=== PATIENT | male | born 1990 | race Caucasian/White ===

== ENCOUNTER 2016-11-17 09:48 | Day surgery (SDC) | payer BC ==
[2016-11-14 15:33] VITALS: BMI 16.0
[~2016-11-17] VITALS: Ht 182.9 cm; Wt 57.8 kg
[2016-11-17] VITALS (14 sets, daily range): BP systolic 99–122; BP diastolic 56–75; PULSE 60–87; RESP 16–38; Ht 182.9 cm; Wt 57.8 kg
[~2016-11-17 09:48] MED LIST: CEFAZOLIN 2 GM/50 ML (PMX) 50 ML IVPB SCH; SOD CHLORIDE 0.9% 1,000 ML IV SCH
[2016-11-17] MEDS ORDERED: LIDOCAINE 2% (SDV) 5 ML INJ ONE (11:21)
[2016-11-17] MEDS ORDERED: PROPOFOL 20 ML ONE (11:21)
[2016-11-17] MEDS ORDERED: MEPERIDINE 100 MG INJ ONE (11:23)
[2016-11-17] MEDS ORDERED: CEFAZOLIN 1 GM INJ ONE (11:23)
[2016-11-17] MEDS ORDERED: BUPIVACAINE 0.25% (MPF) 30 ML INJ INJ ONE (11:56)
[2016-11-17] MEDS ORDERED: HYDROmorphONE (0.2 MG/ML) 10ML SYG IV PRN ×2 (12:00)
[2016-11-17] MEDS ORDERED: MIDAZOLAM 1 MG/ML 2 ML INJ IV PRN (12:00)
[2016-11-17] MEDS ORDERED: MEPERIDINE 25 MG INJ IV PRN (12:00)
[2016-11-17] MEDS ORDERED: METOCLOPRAMIDE 10 MG INJ IV PRN (12:00)
[2016-11-17] MEDS ORDERED: ONDANSETRON 4 MG INJ IV PRN (12:00)
[2016-11-17] MEDS ORDERED: DIPHENHYDRAMINE 50 MG INJ IV PRN (12:00)
[2016-11-17] MEDS ORDERED: FENTAnyl 50 MCG/ML VIAL IV PRN ×2 (12:00)
[2016-11-17] MEDS ORDERED: HYDROCODONE/APAP (5/325) TAB PO ONE (12:30)
--- NOTE | 2016-11-17 15:15 | OPR ---
DATE OF OPERATION: 11/17/2016 INDICATION: This is a 26-year-old male with a large left gluteal mass. She requests surgical excision. Risks, alternatives, benefits, and personnel were discussed with the patient. The patient expressed understanding and consents to the operation. PREOPERATIVE DIAGNOSIS: Left gluteal mass. POSTOPERATIVE DIAGNOSIS: Left gluteal mass. OPERATIONS: 1. Excision of left gluteal mass 7 cm incision and 7 x 3 cm size mass. 2. Localized adjacent tissue transfer with the use of skin flaps. SURGEON: Sage Mitchell MD SPECIMEN: Left gluteal mass. COMPLICATIONS: None. ANESTHESIA: General. DESCRIPTION OF PROCEDURE: The patient was taken to the OR and prepped and draped in the usual sterile fashion. Surgical timeout was performed. IV antibiotics were given. A left elliptical incision was made over the left gluteal mass with a 10 blade. Dissection cautery was carried down to the mass and circumferentially excised. There was good hemostasis. Due to the large tissue defect, localized adjacent tissue transfer with the use of skin flaps was performed. Multilevel closure with interrupted 3-0 Vicryl and skin jenny. Local anesthesia was injected. Dry dressings were applied. Dictated By: SAGE ALLISON/SANDOVAL Conf#: [id number] DID#: [id number] MTDD
--- NOTE | 2016-11-17 15:20 | OPR ---
DATE OF OPERATION: 11/17/2016 INDICATION: This is a 26-year-old male with a left gluteal mass. He requests surgical excision. T he risks, alternatives, benefits, and personnel were discussed with the patient. The patient expres sed understanding and consents to the operation PREOPERATIVE DIAGNOSIS: Left gluteal mass. POSTOPERATIVE DIAGNOSIS: Left gluteal mass. OPERATIONS: 1. Excision of left gluteal mass with a 7 cm incision and 7 x 3 cm size mass. 2. Localized adjacent tissue transfer with the use of skin flaps. SURGEON: Sage Mitchell MD SPECIMEN: Left gluteal mass. COMPLICATIONS: None. ANESTHESIA: General. DESCRIPTION OF PROCEDURE: The patient was taken to the OR and prepped and draped in the usual steri le fashion. A surgical timeout was performed. IV antibiotics were given. Elliptical incision over the left gluteal mass is made with a 15 blade. Dissection cautery was carried down to the mass and circumferentially excised. There was good hemostasis. Due to the large tissue defect, localized a djacent tissue transfer with the use of skin flaps was performed. Multilevel closure with interrupt ed 3-0 Vicryl and skin jenny. Local anesthesia was injected. Dry dressings were applied. Dictated By: SAGE ALLISON/SANDOVAL Conf#: [id number] DID#: [id number]
== END 2016-11-17 14:46 | disposition home or self-care (01) ==
LOC: SDS 09:48
PROVIDERS: ATTEND Surgery
DX: L72.0 Epidermal cyst (principal)
CPT/HCPCS: 14000; 88307; J0690; J2175; J2405; Z7512; Z7610